=== PATIENT | female | born 1975 | race Caucasian/White ===

== ENCOUNTER → 2017-05-23 12:18 | Outpatient (CLI) | payer MEDICAID ==
[2016-04-26 06:32] VITALS: BMI 29.8
[~2017-05-23 12:18] MED LIST: HYDROCODONE-APA1 TAB PO; IBUPROFEN600 MG PO; PRENATAL COMPLE1 TAB PO
[2017-05-23 17:09] LABS: PROTEIN - URINE 13.8 mg/dL (0.0-11.9)
== END | disposition home or self-care (01) ==
LOC: D.US 12:18
PROVIDERS: Obstetrics & Gynecology
DX: O09.519 Supervision of elderly primigravida, unspecified trimester (principal)

== ENCOUNTER → 2017-08-01 12:21 | Outpatient (CLI) | payer MEDICAID ==
[2016-04-26 06:32] VITALS: BMI 29.8
[~2017-08-01 12:21] MED LIST changes: +ZOFRAN4 MG PO
[2017-08-01 13:29] LABS: BASOPHILS 0.1 % (0-2); EOSINOPHILS 0.4 % (0-7); HEMATOCRIT 32.4 % (36.0-48.0); HEMOGLOBIN 10.7 g/dL (12-16); IMMATURE GRANULOCYTES 0.4 % (0-5); LYMPHOCYTES 20.5 % (15-50); MCH 30.3 pg (26.0-34.0); MCV 91.8 fL (80.0-100.0); MEAN PLATELET VOLUME 11.8 fL (7.4-10.4); MONOCYTES 4.1 % (2-11); NEUTROPHILS 74.5 % (40-80); RBC 3.53 10x6/uL (4.00-5.40); RDW 13.3 % (11.5-14.5); WBC 18.3 10x3/uL (4.8-10.8)
[2017-08-01 13:33] LABS: PLATELET COUNT 231 10x3/uL (130-400)
[2017-08-01 13:38] LABS: APPEARANCE CLEAR (CLEAR); BILIRUBIN NEGATIVE (NEGATIVE); COLOR YELLOW (YELLOW); GLUCOSE 50 mg/dL (NEGATIVE); KETONE NEGATIVE (NEGATIVE); NITRITE NEGATIVE (NEGATIVE); PROTEIN NEGATIVE (NEGATIVE); SPECIFIC GRAVITY 1.005 (1.005-1.020); UROBILINOGEN NORMAL (NORMAL)
[2017-08-01 14:03] LABS: ALBUMIN 2.8 g/dL (3.4-5.0); ALKALINE PHOSPHATASE 82 U/L (46-116); ALT (SGPT) 11 U/L (10-68); BILIRUBIN - DIRECT 0.03 mg/dL (0.00-0.30); BILIRUBIN - INDIRECT 0.05 mg/dL (0.00-1.00); BILIRUBIN - TOTAL 0.08 mg/dL (0.2-1.3); CALC OSMOLALITY 274 mosm/kg (275-300); CALCIUM 8.6 mg/dL (8.5-10.1); CARBON DIOXIDE 19.2 mmol/L (21.0-32.0); CHLORIDE - SERUM 105 mmol/L (98-107); CREATININE - SERUM 0.6 mg/dL (0.6-1.3); GLUCOSE 95 mg/dL (74-106); POTASSIUM - SERUM 3.6 mmol/L (3.5-5.1); PROTEIN - SERUM 6.3 g/dL (6.4-8.2); SODIUM 138 mmol/L (136-145); UREA NITROGEN 9 mg/dL (7-18); URIC ACID 3.7 mg/dL (2.6-7.2); eGFR NON AFRICAN AMERICAN > 90 mL/min (90-120)
[2017-08-09 14:00] LABS: PROTEIN - URINE 17.5 mg/dL (0.0-11.9)
== END | disposition home or self-care (01) ==
LOC: D.LDO 12:21
PROVIDERS: Obstetrics & Gynecology
DX: O10.913 Unspecified pre-existing hypertension complicating pregnancy, third trimester (principal); Z3A.29 29 weeks gestation of pregnancy

== ENCOUNTER → 2017-08-12 11:43 | Outpatient (CLI) | payer MEDICAID ==
[2016-04-26 06:32] VITALS: BMI 29.8
[2017-08-12 12:34] LABS: HEMATOCRIT 32.5 % (36.0-48.0); MCH 30.3 pg (26.0-34.0); MCHC 33.8 g/dL (31.0-37.0); MCV 89.5 fL (80.0-100.0); MEAN PLATELET VOLUME 11.6 fL (7.4-10.4); RBC 3.63 10x6/uL (4.00-5.40); RDW 13.4 % (11.5-14.5); WBC 16.1 10x3/uL (4.8-10.8)
[2017-08-12 12:49] LABS: ALT (SGPT) 10 U/L (10-68); CALC OSMOLALITY 268 mosm/kg (275-300); CARBON DIOXIDE 19.7 mmol/L (21.0-32.0); CHLORIDE - SERUM 105 mmol/L (98-107); CREATININE - SERUM 0.6 mg/dL (0.6-1.3); GLUCOSE 80 mg/dL (74-106); POTASSIUM - SERUM 3.8 mmol/L (3.5-5.1); SODIUM 136 mmol/L (136-145); UREA NITROGEN 6 mg/dL (7-18); URIC ACID 3.1 mg/dL (2.6-7.2); eGFR NON AFRICAN AMERICAN > 90 mL/min (90-120)
== END | disposition home or self-care (01) ==
LOC: D.LDO 11:43
PROVIDERS: Obstetrics & Gynecology
DX: O13.3 Gestational [pregnancy-induced] hypertension without significant proteinuria, third trimester (principal); Z3A.31 31 weeks gestation of pregnancy

== ENCOUNTER → 2017-08-22 16:01 | Outpatient (CLI) | payer MEDICAID ==
[2016-04-26 06:32] VITALS: BMI 29.8
[2017-08-22 16:32] LABS: BASOPHILS 0.2 % (0-2); HEMATOCRIT 33.9 % (36.0-48.0); HEMOGLOBIN 11.4 g/dL (12-16); IMMATURE GRANULOCYTES 0.7 % (0-5); MCH 30.4 pg (26.0-34.0); MCHC 33.6 g/dL (31.0-37.0); MCV 90.4 fL (80.0-100.0); MEAN PLATELET VOLUME 11.8 fL (7.4-10.4); MONOCYTES 6.9 % (2-11); NEUTROPHILS 69.2 % (40-80); PLATELET COUNT 239 10x3/uL (130-400); RBC 3.75 10x6/uL (4.00-5.40); RDW 13.4 % (11.5-14.5); WBC 18.1 10x3/uL (4.8-10.8)
[2017-08-22 17:02] LABS: ALBUMIN 2.9 g/dL (3.4-5.0); ALKALINE PHOSPHATASE 94 U/L (46-116); ALT (SGPT) 12 U/L (10-68); BILIRUBIN - TOTAL 0.16 mg/dL (0.2-1.3); CALC OSMOLALITY 273 mosm/kg (275-300); CALCIUM 9.5 mg/dL (8.5-10.1); CARBON DIOXIDE 21.9 mmol/L (21.0-32.0); CHLORIDE - SERUM 103 mmol/L (98-107); CREATININE - SERUM 0.7 mg/dL (0.6-1.3); GLUCOSE 104 mg/dL (74-106); POTASSIUM - SERUM 3.5 mmol/L (3.5-5.1); PROTEIN - SERUM 6.4 g/dL (6.4-8.2); SODIUM 138 mmol/L (136-145); UREA NITROGEN 6 mg/dL (7-18); eGFR NON AFRICAN AMERICAN > 90 mL/min (90-120)
== END | disposition home or self-care (01) ==
LOC: D.LDO 16:01
PROVIDERS: Obstetrics & Gynecology
DX: O13.3 Gestational [pregnancy-induced] hypertension without significant proteinuria, third trimester (principal); Z3A.32 32 weeks gestation of pregnancy

== ENCOUNTER → 2017-08-26 15:42 | Outpatient (CLI) | payer MEDICAID ==
[2016-04-26 06:32] VITALS: BMI 29.8
== END | disposition home or self-care (01) ==
LOC: D.LDO 15:42
DX: O16.3 Unspecified maternal hypertension, third trimester (principal); Z3A.33 33 weeks gestation of pregnancy

== ENCOUNTER 2017-08-29 17:12 | Outpatient (CLI) | payer MEDICAID ==
[2016-04-26 06:32] VITALS: BMI 29.8
[~2017-08-29 17:12] MED LIST changes: -ZOFRAN4 MG PO
[2017-08-29 18:27] LABS: BASOPHILS 0.2 % (0-2); EOSINOPHILS 0.8 % (0-7); HEMATOCRIT 32.5 % (36.0-48.0); HEMOGLOBIN 10.8 g/dL (12-16); IMMATURE GRANULOCYTES 0.5 % (0-5); LYMPHOCYTES 20.2 % (15-50); MCH 29.9 pg (26.0-34.0); MCHC 33.2 g/dL (31.0-37.0); MEAN PLATELET VOLUME 12.1 fL (7.4-10.4); MONOCYTES 4.7 % (2-11); NEUTROPHILS 73.6 % (40-80); PLATELET COUNT 231 10x3/uL (130-400); RBC 3.61 10x6/uL (4.00-5.40); RDW 13.4 % (11.5-14.5); WBC 17.1 10x3/uL (4.8-10.8)
[2017-08-29 18:59] LABS: ALBUMIN 2.7 g/dL (3.4-5.0); ALKALINE PHOSPHATASE 95 U/L (46-116); ALT (SGPT) 10 U/L (10-68); BILIRUBIN - TOTAL 0.13 mg/dL (0.2-1.3); CALC OSMOLALITY 272 mosm/kg (275-300); CALCIUM 8.7 mg/dL (8.5-10.1); CARBON DIOXIDE 21.5 mmol/L (21.0-32.0); CHLORIDE - SERUM 103 mmol/L (98-107); CREATININE - SERUM 0.7 mg/dL (0.6-1.3); GLUCOSE 113 mg/dL (74-106); POTASSIUM - SERUM 3.3 mmol/L (3.5-5.1); PROTEIN - SERUM 6.2 g/dL (6.4-8.2); SODIUM 137 mmol/L (136-145); UREA NITROGEN 8 mg/dL (7-18); eGFR NON AFRICAN AMERICAN > 90 mL/min (90-120)
== END 2017-08-29 19:21 | disposition home or self-care (01) ==
LOC: D.LDO 17:12
PROVIDERS: Obstetrics & Gynecology
DX: O26.899 Other specified pregnancy related conditions, unspecified trimester (principal)

== ENCOUNTER → 2017-09-06 14:45 | Outpatient (CLI) | payer MEDICAID ==
[2016-04-26 06:32] VITALS: BMI 29.8
[~2017-09-06 14:45] MED LIST changes: +ZOFRAN4 MG PO
[2017-09-06 16:14] LABS: BASOPHILS 0.2 % (0-2); EOSINOPHILS 1.1 % (0-7); HEMATOCRIT 32.1 % (36.0-48.0); HEMOGLOBIN 10.7 g/dL (12-16); IMMATURE GRANULOCYTES 0.4 % (0-5); LYMPHOCYTES 24.1 % (15-50); MCH 29.7 pg (26.0-34.0); MCHC 33.3 g/dL (31.0-37.0); MCV 89.2 fL (80.0-100.0); MEAN PLATELET VOLUME 12.3 fL (7.4-10.4); MONOCYTES 5.6 % (2-11); NEUTROPHILS 68.6 % (40-80); PLATELET COUNT 248 10x3/uL (130-400); RDW 13.4 % (11.5-14.5); WBC 16.1 10x3/uL (4.8-10.8)
[2017-09-06 16:28] LABS: ALBUMIN 2.6 g/dL (3.4-5.0); ALKALINE PHOSPHATASE 126 U/L (46-116); ALT (SGPT) 14 U/L (10-68); BILIRUBIN - TOTAL 0.14 mg/dL (0.2-1.3); CALC OSMOLALITY 267 mosm/kg (275-300); CALCIUM 8.6 mg/dL (8.5-10.1); CARBON DIOXIDE 18.6 mmol/L (21.0-32.0); CHLORIDE - SERUM 103 mmol/L (98-107); CREATININE - SERUM 0.7 mg/dL (0.6-1.3); GLUCOSE 116 mg/dL (74-106); POTASSIUM - SERUM 3.5 mmol/L (3.5-5.1); PROTEIN - SERUM 6.2 g/dL (6.4-8.2); SODIUM 134 mmol/L (136-145); UREA NITROGEN 9 mg/dL (7-18); eGFR NON AFRICAN AMERICAN > 90 mL/min (90-120)
== END | disposition home or self-care (01) ==
LOC: D.LDO 14:45
PROVIDERS: Obstetrics & Gynecology
DX: O13.3 Gestational [pregnancy-induced] hypertension without significant proteinuria, third trimester (principal); Z3A.34 34 weeks gestation of pregnancy

== ENCOUNTER → 2017-09-12 15:52 | Outpatient (CLI) | payer MEDICAID ==
[2016-04-26 06:32] VITALS: BMI 29.8
[2017-09-12 16:42] LABS: BASOPHILS 0.2 % (0-2); EOSINOPHILS 0.8 % (0-7); HEMATOCRIT 33.2 % (36.0-48.0); HEMOGLOBIN 11.3 g/dL (12-16); IMMATURE GRANULOCYTES 0.6 % (0-5); LYMPHOCYTES 21.8 % (15-50); MCH 30.4 pg (26.0-34.0); MCV 89.2 fL (80.0-100.0); MEAN PLATELET VOLUME 12.1 fL (7.4-10.4); MONOCYTES 7.8 % (2-11); NEUTROPHILS 68.8 % (40-80); PLATELET COUNT 254 10x3/uL (130-400); RBC 3.72 10x6/uL (4.00-5.40); RDW 13.3 % (11.5-14.5); WBC 17.3 10x3/uL (4.8-10.8)
[2017-09-12 17:03] LABS: ALBUMIN 2.6 g/dL (3.4-5.0); ALKALINE PHOSPHATASE 122 U/L (46-116); ALT (SGPT) 13 U/L (10-68); CALC OSMOLALITY 274 mosm/kg (275-300); CALCIUM 8.6 mg/dL (8.5-10.1); CARBON DIOXIDE 20.1 mmol/L (21.0-32.0); CHLORIDE - SERUM 106 mmol/L (98-107); CREATININE - SERUM 0.7 mg/dL (0.6-1.3); GLUCOSE 94 mg/dL (74-106); POTASSIUM - SERUM 3.7 mmol/L (3.5-5.1); PROTEIN - SERUM 6.2 g/dL (6.4-8.2); SODIUM 138 mmol/L (136-145); UREA NITROGEN 10 mg/dL (7-18); eGFR NON AFRICAN AMERICAN > 90 mL/min (90-120)
[2017-09-12 17:06] LABS: BILIRUBIN - TOTAL 0.08 mg/dL (0.2-1.3)
== END | disposition home or self-care (01) ==
LOC: D.LDO 15:52
PROVIDERS: Obstetrics & Gynecology
DX: O13.3 Gestational [pregnancy-induced] hypertension without significant proteinuria, third trimester (principal); Z3A.35 35 weeks gestation of pregnancy

== ENCOUNTER → 2017-09-13 17:57 | Outpatient (CLI) | payer MEDICAID ==
[2016-04-26 06:32] VITALS: BMI 29.8
== END | disposition home or self-care (01) ==
LOC: D.LDO 17:57
DX: O26.893 Other specified pregnancy related conditions, third trimester (principal); Z3A.35 35 weeks gestation of pregnancy

== ENCOUNTER → 2017-09-14 13:38 | Outpatient (CLI) | payer MEDICAID ==
[2016-04-26 06:32] VITALS: BMI 29.8
== END | disposition home or self-care (01) ==
LOC: D.LDO 13:38
DX: O26.899 Other specified pregnancy related conditions, unspecified trimester (principal); Z3A.00 Weeks of gestation of pregnancy not specified; R42 Dizziness and giddiness; R51 Headache; H53.9 Unspecified visual disturbance

== ENCOUNTER → 2017-09-19 16:38 | Outpatient (CLI) | payer MEDICAID ==
[2016-04-26 06:32] VITALS: BMI 29.8
[2017-09-19 17:50] LABS: HEMATOCRIT 33.5 % (36.0-48.0); HEMOGLOBIN 11.1 g/dL (12-16); MCH 29.5 pg (26.0-34.0); MCHC 33.1 g/dL (31.0-37.0); MCV 89.1 fL (80.0-100.0); RBC 3.76 10x6/uL (4.00-5.40); RDW 13.6 % (11.5-14.5); WBC 15.7 10x3/uL (4.8-10.8)
[2017-09-19 18:15] LABS: CALC OSMOLALITY 268 mosm/kg (275-300); CALCIUM 9.1 mg/dL (8.5-10.1); CARBON DIOXIDE 22.6 mmol/L (21.0-32.0); CHLORIDE - SERUM 104 mmol/L (98-107); CREATININE - SERUM 0.7 mg/dL (0.6-1.3); GLUCOSE 79 mg/dL (74-106); POTASSIUM - SERUM 3.6 mmol/L (3.5-5.1); SODIUM 136 mmol/L (136-145); UREA NITROGEN 8 mg/dL (7-18); URIC ACID 3.6 mg/dL (2.6-7.2); eGFR NON AFRICAN AMERICAN > 90 mL/min (90-120)
== END | disposition home or self-care (01) ==
LOC: D.LDO 16:38
PROVIDERS: Obstetrics & Gynecology
DX: O16.3 Unspecified maternal hypertension, third trimester (principal); Z3A.36 36 weeks gestation of pregnancy

== ENCOUNTER 2017-09-22 05:43 | Inpatient (IN) | payer MEDICAID ==
[2017-09-22] VITALS (12 sets, daily range): BP systolic 112–137; BP diastolic 64–89; Ht 160 cm; Wt 77.1 kg
[~2017-09-22] VITALS: Ht 160 cm; Wt 77.1 kg
[~2017-09-22 05:43] MED LIST changes: -ZOFRAN4 MG PO
[2017-09-22] MEDS ORDERED: PRENATAL COMPLE1 TAB PO (06:22)
[2017-09-22 06:47] LABS: HEMOGLOBIN 12.3 g/dL (12-16); MCH 30.1 pg (26.0-34.0); MCHC 34.2 g/dL (31.0-37.0); MCV 88.2 fL (80.0-100.0); MEAN PLATELET VOLUME 12.3 fL (7.4-10.4); RBC 4.08 10x6/uL (4.00-5.40); RDW 13.7 % (11.5-14.5); WBC 17.9 10x3/uL (4.8-10.8)
[2017-09-22 07:21] LABS: APPEARANCE CLEAR (CLEAR); BILIRUBIN NEGATIVE (NEGATIVE); COLOR DK YELLOW (YELLOW); GLUCOSE NEGATIVE (NEGATIVE); KETONE NEGATIVE (NEGATIVE); NITRITE NEGATIVE (NEGATIVE); PROTEIN NEGATIVE (NEGATIVE); SPECIFIC GRAVITY 1.005 (1.005-1.020); UROBILINOGEN NORMAL (NORMAL)
[2017-09-22 07:22] LABS: BACTERIA FEW /hpf (NONE SEEN); EPITHELIAL CELLS 0-5 /hpf (0-5); MUCUS >1+ /lpf (NONE SEEN); RED CELLS - URINE OCC /hpf (0-5); WHITE CELLS - URINE OCC /hpf (0-5)
[2017-09-22 13:35] LABS: HEMATOCRIT 34.2 % (36.0-48.0); HEMOGLOBIN 11.2 g/dL (12-16); MCH 29.5 pg (26.0-34.0); MCHC 32.7 g/dL (31.0-37.0); MEAN PLATELET VOLUME 12.1 fL (7.4-10.4); PLATELET COUNT 233 10x3/uL (130-400); RDW 13.9 % (11.5-14.5); WBC 22.3 10x3/uL (4.8-10.8)
[2017-09-22 14:27] LABS: LYMPHOCYTES 12 % (15-50); MONOCYTES 4 % (2-11); NEUTROPHILS 83 % (40-80); PLATELET ESTIMATE NORMAL
[2017-09-23 03:45] VITALS: BP 117/70
[2017-09-23 05:14] LABS: RAPID PLASMA REAGIN Non Reactive (Non Reactive)
[2017-09-23 07:04] LABS: BASOPHILS 0.3 % (0-2); EOSINOPHILS 2.1 % (0-7); HEMATOCRIT 32.6 % (36.0-48.0); HEMOGLOBIN 10.9 g/dL (12-16); IMMATURE GRANULOCYTES 0.4 % (0-5); LYMPHOCYTES 20.3 % (15-50); MCH 30.3 pg (26.0-34.0); MCHC 33.4 g/dL (31.0-37.0); MCV 90.6 fL (80.0-100.0); MEAN PLATELET VOLUME 12.1 fL (7.4-10.4); NEUTROPHILS 70.9 % (40-80); PLATELET COUNT 242 10x3/uL (130-400); RDW 14.1 % (11.5-14.5)
[2017-09-23 07:07] LABS: WBC 15.6 10x3/uL (4.8-10.8)
[2017-09-23 07:30] VITALS: BP 124/70
[2017-09-23] MEDS ORDERED: IBUPROFEN600 MG PO (09:21)
[2017-09-23] MEDS ORDERED: HYDROCODONE-APA1 TAB PO (09:21)
[2017-09-23] MEDS ORDERED: ZOFRAN4 MG PO (09:22)
== END 2017-09-23 10:15 | disposition home or self-care (01) | DRG 766 ==
LOC: D.LD 05:43
PROVIDERS: ADMIT Obstetrics & Gynecology
PROC: 10D00Z1 Extraction of Products of Conception, Low, Open Approach (ICD-10-PCS; principal; 2017-09-22 07:30)
PROC: 0UB70ZZ Excision of Bilateral Fallopian Tubes, Open Approach (ICD-10-PCS; 2017-09-22 07:30)
DX: O34.219 Maternal care for unspecified type scar from previous cesarean delivery (principal); Z3A.37 37 weeks gestation of pregnancy; Z37.0 Single live birth; O11.4 Pre-existing hypertension with pre-eclampsia, complicating childbirth; O99.824 Streptococcus B carrier state complicating childbirth; O99.334 Smoking (tobacco) complicating childbirth; Z30.2 Encounter for sterilization